=== PATIENT | male | born 1965 | race Caucasian/White ===

== ENCOUNTER 2019-01-01 14:47 | Observation (INO) | payer OTHER ==
[2019-01-01] MEDS ORDERED: CEFTRIAXONE 1GM/50ML BAG 1 GM/50 ML BAG IVPB ONE (15:21)
[2019-01-01] MEDS ORDERED: SODIUM CHLORIDE 0.9% 500 ML IV ONE (15:21)
[2019-01-01] MEDS ORDERED: CLINDAMYCIN 600MG/50ML PREMIX 600 MG/50 ML BAG IVPB ONE (15:23)
--- NOTE | 2019-01-01 15:26 | Emergency Department Record ---
History of Present Illness - General Chief complaint: Swelling of legs Stated complaint: SWELLING IN RT LEG Time Seen by Provider: 01/01/19 15:09 Source: Patient Mode of Arrival: Ambulatory Limitations: No limitations - History of Present Illness Initial comments: The patient is here due to having R leg pain and swelling for 4-5 days. He did bump his knee a couple of weeks ago and then it started getting red 4-5 days ago. Now in the last 24 hours the anterior R lower leg has become very red and swollen. He denies any fever, chills, vomiting, or severe pain. MD Complaint: Extremity pain, Extremity swelling Onset/Timin -: Days(s) Location: Right, Lower Leg History of Same: No Radiation: None Severity scale (1-10): 2 Quality: Aching - Related Data Home Medications Medication Instructions Recorded Confirmed Last Taken Dapagliflozin Propanediol [Farxiga] 10 mg PO DAILY 01/01/19 01/01/19 Unknown Ibuprofen [Advil] 600 mg PO TID 01/01/19 01/01/19 01/01/19 Insulin Glargine,Hum.rec.anlog 12 unit SQ DAILY 01/01/19 01/01/19 01/01/19 [Basaglar Kwikpen U-100] Losartan Potassium 50 mg PO DAILY 01/01/19 01/01/19 01/01/19 Metformin HCl 1,000 mg PO BID 01/01/19 01/01/19 01/01/19 Allergies Allergy/AdvReac Type Severity Reaction Status Date / Time erythromycin base Allergy DIARRHEA Verified 01/01/19 15:14 Penicillins Allergy RASH Verified 01/01/19 15:14 Travel Screening - Travel/Exposure Within Last 30 Days Have you traveled within the last 30 days?: No - Travel/Exposure Within Last Year Have you traveled outside the [place] in the last year?: No - Additonal Travel Details Have you been exposed to anyone with a communicable illness?: No - Travel Symptoms Symptom Screening: None Review of Systems Constitutional: Denies: Chills, Fever, Malaise Eyes: Denies: Eye discharge ENT: Denies: Congestion Respiratory: Denies: Cough Cardiovascular: Denies: Arrhythmia Endocrine: Denies: Fatigue Gastrointestinal: Denies: Nausea Genitourinary: Denies: Dysuria Musculoskeletal: Denies: Arthralgia Skin: Denies: Bruising Past Medical History - SOCIAL HISTORY Smoking Status: Former smoker Alcohol Use: Rare Drug Use: None - RESPIRATORY Hx Respiratory Disorders: Yes Hx Asthma: Yes - CARDIOVASCULAR Hx Cardio Disorders: Yes Hx Hypertension: Yes - NEURO Hx Neuro Disorders: No - GI Hx GI Disorders: Yes Hx Hiatal Hernia: Yes - Hx Genitourinary Disorders: No - ENDOCRINE Hx Endocrine Disorders: Yes Hx Diabetes: Yes Hx Thyroid Disease: No - MUSCULOSKELETAL Hx Musculoskeletal Disorders: Yes Hx Back Injury: Yes - PSYCH Hx Psych Problems: No - HEMATOLOGY/ONCOLOGY Hx Hematology/Oncology Disorders: No Family Medical History Any Significant Family History?: No Physical Exam - General General Appearance: Alert, Oriented x3, Cooperative, No acute distress - Head Head exam: Atraumatic, Normocephalic, Normal inspection - Eye Eye exam: Normal appearance, PERRL - ENT Throat exam: Normal inspection. negative: Tonsillar erythema, Tonsillar exudate - Neck Neck exam: Normal inspection, Full ROM. negative: Tenderness - Respiratory Respiratory exam: Normal lung sounds bilaterally. negative: Respiratory distress - Cardiovascular Cardiovascular Exam: Regular rate, Normal rhythm, Normal heart sounds - GI/Abdominal GI/Abdominal exam: Soft, Normal bowel sounds. negative: Tenderness - Extremities Extremities exam: Full ROM, Tenderness. negative: Normal inspection (There is erythema and warmth to the anterior lower leg from the knee to the ankle. The area is warm and tender with no crepitance. ), Joint swelling - Back Back exam: Reports: Normal inspection - Neurological Neurological exam: Alert, Normal gait. negative: Abnormal gait, Motor sensory deficit - Psychiatric Psychiatric exam: negative: Anxious Course Vital Signs 01/01/19 15:02 Temperature 97.9 F Pulse Rate 97 H Respiratory 16 Rate Blood Pressure 138/90 Pulse Ox 97 - Reevaluation(s) Reevaluation #1: The patient is doing OK at this time. His R leg is no worse and is not painful at this time. I did discuss need to admit the patient to the hospital overnight at least and he did agree. I then did discuss the case with Ирина ([employer]) and she does accept the admission. 01/01/19 16:24 Medical Decision Making - Data Complexity MDM Data: Labs Ordered and/or Reviewed - Lab Data Result diagrams: 01/01/19 15:26 01/01/19 15:26 Disposition Disposition: Admit Clinical Impression: Cellulitis Qualifiers: Site of cellulitis: unspecified site Qualified Code(s): L03.90 - Cellulitis, unspecified Disposition: Still a Patient at [facility] Decision to Admit: Admit from ER Decision to Admit Date: 01/01/19 Decision to Admit Time: 16:25 Accepting Physician: Reinaldo Time Discussed w/Accepting Physician: 16:25 Condition: (2) Stable Instructions: Cellulitis (ED) Forms: Patient Portal Access Time of Disposition: 16:26 Quality - Quality Measures Quality Measures: N/A - Blood Pressure Screening View Details: Yes Does Patient Have Any of the Following: No Blood Pressure Classification: Hypertensive Reading Systolic Measurement: 138 Diastolic Measurement: 90 Screening for High Blood Pressure: < First Hypertensive BP, F/U Documented > [ G8950] First Hypertensive Follow-up Interventions: Referral to alternative/primary care provider.
[2019-01-01 15:38] LABS: BASO % 0.3 % (0-6); EOS % 2.2 % (0-6); GRAN % 73.1 % (47-80); LYMPH % 15.2 % (16-45); MEAN CELL VOLUME 92.6 fl (81-97); MEAN CORPUSCULAR HEMOGLOBIN 32.4 pg (27-33); MEAN PLATELET VOLUME 9.4 fl (7.4-10.4); MONO % 9.2 % (0-9); PLATELET COUNT 222 K/uL (130-400); RED BLOOD COUNT 4.32 M/uL (4.40-5.70); RED CELL DISTRIBUTION WIDTH 13.3 % (11.5-14.5); WHITE BLOOD COUNT W/O DIFF 10.3 K/uL (4.2-12.2)
[2019-01-01 15:51] LABS: BLOOD UREA NITROGEN 23 mg/dL (6-20); CREATININE 0.9 mg/dL (0.7-1.2); EST GLOMERULAR FILTRATION RATE > 60 mL/min
[2019-01-01 15:52] LABS: TOTAL PROTEIN 7.1 g/dL (6.6-8.7)
[2019-01-01 15:54] LABS: GLUCOSE,RANDOM 267 mg/dL (74-109)
[2019-01-01 15:56] LABS: ALT/SGPT 18 U/L (<41); AST/SGOT 13 U/L (10.0-50.0); BILIRUBIN,DIRECT 0.3 mg/dL (0-0.3)
[2019-01-01 15:57] LABS: ALKALINE PHOSPHATASE 49 U/L (55-149); C-REACTIVE PROTEIN 18.92 mg/dL (<0.5)
[2019-01-01] MEDS ORDERED: Diph,Pert(Acell),Tet Vac 0.5 ML SYR IM ONE (16:23)
[2019-01-01] MEDS ORDERED: LEVEMIR FLEXTOUCH 100 UNIT/ML INSULIN PEN SQ SCH (19:30)
[2019-01-01] MEDS: IBUPROFEN 600 MG TABLET PO SCH ×2 (20:28→23:44)
[2019-01-01] MEDS: CLINDAMYCIN 600MG/50ML PREMIX 600 MG/50 ML BAG IVPB SCH (20:32)
[2019-01-01] MEDS: METFORMIN 500 MG TABLET PO SCH (22:49)
[2019-01-01] MEDS: GLIMEPIRIDE 2 MG TABLET PO SCH (22:49)
[2019-01-02] MEDS: CLINDAMYCIN 600MG/50ML PREMIX 600 MG/50 ML BAG IVPB SCH ×3 (03:17→18:10)
[2019-01-02] MEDS: ACETAMINOPHEN 325 MG TAB PO PRN ×2 (06:02→13:43)
[2019-01-02 06:41] LABS: BASO % 0.5 % (0-6); EOS % 1.8 % (0-6); GRAN % 72.3 % (47-80); HEMATOCRIT 42.7 % (42.0-52.0); HEMOGLOBIN 14.5 gm/dl (14.0-18.0); LYMPH % 16.7 % (16-45); MEAN CELL VOLUME 93.6 fl (81-97); MEAN CORPUSCULAR HEMOGLOBIN 31.8 pg (27-33); MEAN PLATELET VOLUME 9.5 fl (7.4-10.4); MONO % 8.7 % (0-9); PLATELET COUNT 238 K/uL (130-400); RED BLOOD COUNT 4.56 M/uL (4.40-5.70); RED CELL DISTRIBUTION WIDTH 13.2 % (11.5-14.5); WHITE BLOOD COUNT W/O DIFF 10.5 K/uL (4.2-12.2)
[2019-01-02 06:59] LABS: ALB/GLOB RATIO 1.2 (1.1-1.8); ALBUMIN 3.9 g/dL (4.0-5.0); ALKALINE PHOSPHATASE 51 U/L (55-149); ALT/SGPT 20 U/L (<41); AST/SGOT 13 U/L (10.0-50.0); BLOOD UREA NITROGEN 18 mg/dL (6-20); C-REACTIVE PROTEIN 14.76 mg/dL (<0.5); CREATININE 0.8 mg/dL (0.7-1.2); EST GLOMERULAR FILTRATION RATE > 60 mL/min; GLUCOSE,RANDOM 165 mg/dL (74-109); TOTAL PROTEIN 7.2 g/dL (6.6-8.7)
[2019-01-02] MEDS: METFORMIN 500 MG TABLET PO SCH (09:27)
[2019-01-02] MEDS: GLIMEPIRIDE 2 MG TABLET PO SCH (09:27)
[2019-01-02] MEDS: IBUPROFEN 600 MG TABLET PO SCH ×2 (09:27→16:40)
[2019-01-02] MEDS ORDERED: LOSARTAN POTASSIUM 25 MG TABLET PO SCH (10:00)
[2019-01-02] MEDS ORDERED: DAPAGLIFLOZIN PROPANEDIOL 10 MG PO SCH (10:00)
[2019-01-02] MEDS ORDERED: LEVEMIR FLEXTOUCH 100 UNIT/ML INSULIN PEN SQ SCH (10:00)
--- NOTE | 2019-01-02 11:15 | History & Physical ---
History of Present Illness - Date of Service Date of Service for History & Physical: 01/02/19 - History of Present Illness Admitting Diagnosis: 1. Right Lower Leg Cellulitis. History of Present Illness: 53 year old male patient presented to ED with right leg and knee pain and swelling for the past 4-5 days. Patient noticed a small abrasion on the anterior of his right knee, and noted the swelling and redness to radiate from there. Patient reported significant worsening of symptoms over the past 24 hours. Patient denied fever, chills, vomiting, shortness of breath, or severe pain. Patient's past medical history includes diabetes, HTN, vit D deficiency, and previous back surgeries. PCP: Dr. Carpenter ED Course: VS: Temp 97.9F, HR 97, RR 16, BP 138/90, Pulse ox 97% Tetanus updated afebrile WBC 10.3, CRP 18.9 Clindamycin 600mg q8h 01/02/19: Patient A&O x 4, sitting on edge of bed. Patient reports mild discomfort in knee at this time. Reviewed picture of patient's right knee/leg from yesterday, improvement in erythema and swelling of knee. Patient has received 2 doses of IV Clindamycin at this time. WBC remained stable at 10.5, CRP decreased to 14.76 this morning. Due to patient's history of diabetes, will keep patient for 2 additional doses of IV abx and dc home with PO Clindamycin at that time. Travel Screening - Travel/Exposure Within Last 30 Days Have you traveled within the last 30 days?: No - Travel/Exposure Within Last Year Have you traveled outside the [place] in the last year?: No - Additonal Travel Details Have you been exposed to anyone with a communicable illness?: No - Travel Symptoms Symptom Screening: None Review of Systems Reviewed: No additional complaints except as noted below Constitutional: Denies: Chills, Fever, Malaise Eyes: Denies: Eye discharge ENT: Denies: Congestion Respiratory: Denies: Cough Cardiovascular: Denies: Arrhythmia Endocrine: Denies: Fatigue Gastrointestinal: Denies: Nausea Genitourinary: Denies: Dysuria Musculoskeletal: Denies: Arthralgia Skin: Reports: Change in color (redness and swelling of right knee/leg). Denies : Bruising Past Medical History - SOCIAL HISTORY Smoking Status: Former smoker Alcohol Use: None Drug Use: None - RESPIRATORY Hx Respiratory Disorders: Yes Hx Asthma: Yes - CARDIOVASCULAR Hx Cardio Disorders: Yes Hx Hypertension: Yes - NEURO Hx Neuro Disorders: No - GI Hx GI Disorders: Yes Hx Hiatal Hernia: Yes - Hx Genitourinary Disorders: No - ENDOCRINE Hx Endocrine Disorders: Yes Hx Diabetes: Yes Hx Thyroid Disease: No - MUSCULOSKELETAL Hx Musculoskeletal Disorders: Yes Hx Back Injury: Yes - PSYCH Hx Psych Problems: No - HEMATOLOGY/ONCOLOGY Hx Hematology/Oncology Disorders: No Family Medical History Any Significant Family History?: No Hx Diabetes: Father, Mother, Grandparents Hx Heart Disease: Mother Hx HTN: Father, Mother, Children, Grandparents Hx Resp Disorders: Children H&P Meds/Allergies - Allergies Allergies: Allergies Allergy/AdvReac Type Severity Reaction Status Date / Time erythromycin base Allergy DIARRHEA Verified 01/01/19 15:14 Penicillins Allergy RASH Verified 01/01/19 15:14 - Home Medications Home Medications Medication Instructions Recorded Confirmed Last Taken Dapagliflozin Propanediol [Farxiga] 10 mg PO DAILY 01/01/19 01/01/19 Unknown Ibuprofen [Advil] 600 mg PO TID 01/01/19 01/01/19 01/01/19 Insulin Glargine,Hum.rec.anlog 12 unit SQ DAILY 01/01/19 01/01/19 01/01/19 [Basaglzoila Garcia U-100] Losartan Potassium 50 mg PO DAILY 01/01/19 01/01/19 01/01/19 Metformin HCl 1,000 mg PO BID 01/01/19 01/01/19 01/01/19 - Active Medications Active Medications: Current Medications Acetaminophen (Tylenol 325mg) 650 mg PO Q6H PRN PRN Reason: PAIN - MILD(1-4)/FEVER Last Admin: 01/02/19 06:02 Dose: 650 mg Glimepiride (Amaryl) 4 mg PO DAILY [facility] Last Admin: 01/02/19 09:27 Dose: 4 mg Clindamycin Phosphate (Cleocin 600 [id number]) 600 mg in 50 mls @ 100 mls/ hr IVPB Q8H [facility] Last Admin: 01/02/19 11:03 Dose: 100 mls/hr Ibuprofen (Motrin 600mg) 600 mg PO TID [facility] Last Admin: 01/02/19 09:27 Dose: 600 mg Insulin Detemir (Levemir Flextouch) 12 unit SQ DAILY [facility] Last Admin: 01/02/19 09:26 Dose: 12 unit Losartan Potassium (Cozaar) 50 mg PO DAILY [facility] Last Admin: 01/02/19 09:27 Dose: 50 mg Metformin HCl (Glucophage Ir) 1,000 mg PO BID [facility] Last Admin: 01/02/19 09:27 Dose: 1,000 mg Non-Formulary Medication (Dapagliflozin Propanediol [Farxiga]) 10 mg PO DAILY [facility] Physical Exam - Vital Signs Vital Signs: Vital Signs - Last 24 Hrs Temp Pulse Pulse Resp BP BP Pulse Ox 01/02/19 08:15 20 01/02/19 04:00 97.9 F 97 H 16 155/88 96 01/01/19 21:00 86 16 01/01/19 20:00 98.2 F 86 16 136/78 96 01/01/19 17:23 92 H 16 150/99 98 01/01/19 16:48 91 H 16 150/99 98 01/01/19 15:02 97.9 F 97 H 16 138/90 97 - General General Appearance: Alert, Oriented x3, Cooperative, No acute distress Limitations: No limitations - Head Head exam: Atraumatic, Normocephalic, Normal inspection - Eye Eye exam: Normal appearance, PERRL - ENT ENT exam: Normal exam, Mucous membranes moist Throat exam: Normal inspection. negative: Tonsillar erythema, Tonsillar exudate - Neck Neck exam: Normal inspection, Full ROM. negative: Tenderness - Respiratory Respiratory exam: Normal lung sounds bilaterally. negative: Respiratory distress - Cardiovascular Cardiovascular Exam: Regular rate, Normal rhythm, Normal heart sounds Peripheral Pulses: 2+: Radial (R), Radial (L), Dorsalis Pedis (R), Dorsalis Pedis (L) - GI/Abdominal GI/Abdominal exam: Soft, Normal bowel sounds. negative: Tenderness - Extremities Extremities exam: Full ROM, Tenderness (right knee). negative: Normal inspection (Improved erythema and warmth to the anterior lower leg from the knee to the ankle. The area is warm and tender to palpation ), Joint swelling - Back Back exam: Reports: Normal inspection - Neurological Neurological exam: Alert, Normal gait. negative: Abnormal gait, Motor sensory deficit - Psychiatric Psychiatric exam: negative: Anxious - Skin Skin exam: Abrasion (noted to right anterior knee) Results - Labs Result Diagrams: 01/02/19 06:20 01/02/19 06:20 Labs Last 24 Hours: Laboratory Results - last 24 hr 01/01/19 01/01/19 01/02/19 15:26 15:26 06:20 WBC 10.3 10.5 RBC 4.32 L 4.56 Hgb 14.0 14.5 Hct 40.0 L 42.7 MCV 92.6 93.6 MCH 32.4 31.8 MCHC 35.0 34.0 RDW 13.3 13.2 Plt Count 222 238 MPV 9.4 9.5 Gran % 73.1 72.3 Lymphocytes % 15.2 L 16.7 Monocytes % 9.2 H 8.7 Eosinophils % 2.2 1.8 Basophils % 0.3 0.5 Sodium 140 Potassium 4.0 Chloride 102 Carbon Dioxide 23.0 Anion Gap 15.0 BUN 23 H Creatinine 0.9 Estimated GFR > 60 Random Glucose 267 H Calcium 9.2 Total Bilirubin 0.80 Direct Bilirubin 0.3 AST 13 ALT 18 Alkaline Phosphatase 49 L C-Reactive Protein 18.92 H Total Protein 7.1 Albumin 4.0 Globulin Albumin/Globulin Ratio 01/02/19 06:20 WBC RBC Hgb Hct MCV MCH MCHC RDW Plt Count MPV Gran % Lymphocytes % Monocytes % Eosinophils % Basophils % Sodium 142 Potassium 4.1 Chloride 105 Carbon Dioxide 23.0 Anion Gap 14.0 BUN 18 Creatinine 0.8 Estimated GFR > 60 Random Glucose 165 H Calcium 9.2 Total Bilirubin 0.70 Direct Bilirubin AST 13 ALT 20 Alkaline Phosphatase 51 L C-Reactive Protein 14.76 H Total Protein 7.2 Albumin 3.9 L Globulin 3.3 Albumin/Globulin Ratio 1.2 VTE H&P Assessment - Risk for VTE Risk for VTE: Yes Risk Level: Moderate Risk Assessment Date: 01/02/19 Risk Assessment Time: 11:16 VTE Orders Placed or Will Be Placed: Yes Plan - Detailed Diagnosis and Plan (1) Cellulitis Current Visit: Yes Status: Acute Qualifiers: Site of cellulitis: unspecified site Qualified Code(s): L03.90 - Cellulitis , unspecified Base Code: L03.90 - CELLULITIS, UNSPECIFIED Comment: 01/02/19: - Cellulitis noted on right knee and leg. Erythema, swelling, and warmth has improved since yesterday. Small abrasion noted on anterior knee, no drainage noted. - WBC 10.5, CRP improved from 18.9 to 14.7 today - Afebrile - Will continue with Clindamycin 600mg q8h IVPB for a total of 4 doses due to history of diabetes (2) Diabetes type 2, controlled Current Visit: Yes Status: Acute Base Code: E11.9 - TYPE 2 DIABETES MELLITUS WITHOUT COMPLICATIONS Comment: 01/02/19: - Currently controlled on Metformin 1000mg BID, Amaryl 4mg daily, Farxiga 10mg daily, and Levemir 12U daily - Accucheck prn (3) DVT prophylaxis Current Visit: Yes Status: Acute Base Code: [id number] - Comment: 01/02/19: Moderate risk due to age, hospitalization, and decreased mobility -Lovenox 40mg SQ daily (4) Full code status Current Visit: Yes Status: Acute Base Code: Z78.9 - OTHER SPECIFIED HEALTH STATUS Comment: 01/02/19: Patient is a full code this admission
--- NOTE | 2019-01-02 11:27 | Discharge Summary ---
Providers Discharge Summary Date: 01/02/19 Date of admission: 01/01/19 17:10 Expected Date of Discharge: 01/02/19 Attending physician: ADITI CRUZ Primary care physician: DEBORAH SALGUERO D.O. Physical Exam - Vital Signs Vital Signs: Vital Signs - Last 24 Hrs Temp Pulse Pulse Resp BP BP Pulse Ox 01/02/19 08:15 20 01/02/19 04:00 97.9 F 97 H 16 155/88 96 01/01/19 21:00 86 16 01/01/19 20:00 98.2 F 86 16 136/78 96 01/01/19 17:23 92 H 16 150/99 98 01/01/19 16:48 91 H 16 150/99 98 01/01/19 15:02 97.9 F 97 H 16 138/90 97 - General General Appearance: Alert, Oriented x3, Cooperative, No acute distress Limitations: No limitations - Head Head exam: Atraumatic, Normocephalic, Normal inspection - Eye Eye exam: Normal appearance, PERRL - ENT ENT exam: Normal exam, Mucous membranes moist Throat exam: Normal inspection. negative: Tonsillar erythema, Tonsillar exudate - Neck Neck exam: Normal inspection, Full ROM. negative: Tenderness - Respiratory Respiratory exam: Normal lung sounds bilaterally. negative: Respiratory distress - Cardiovascular Cardiovascular Exam: Regular rate, Normal rhythm, Normal heart sounds Peripheral Pulses: 2+: Radial (R), Radial (L), Dorsalis Pedis (R), Dorsalis Pedis (L) - GI/Abdominal GI/Abdominal exam: Soft, Normal bowel sounds. negative: Tenderness - Extremities Extremities exam: Full ROM, Tenderness (right knee). negative: Normal inspection (Improved erythema and warmth to the anterior lower leg from the knee to the ankle. The area is warm and tender to palpation ), Joint swelling - Back Back exam: Reports: Normal inspection - Neurological Neurological exam: Alert, Normal gait. negative: Abnormal gait, Motor sensory deficit - Psychiatric Psychiatric exam: negative: Anxious - Skin Skin exam: Abrasion (noted to right anterior knee) Hospitalization - Hospitalization Admission Diagnosis: 1. Right Lower Leg Cellulitis. - Problem List/Discharge Diagnosis (1) Cellulitis Current Visit: Yes Status: Acute Discharge Diagnosis: Site of cellulitis: unspecified site Qualified Code(s): L03.90 - Cellulitis , unspecified Base Code: L03.90 - CELLULITIS, UNSPECIFIED Comment: 01/02/19: - Cellulitis noted on right knee and leg. Erythema, swelling, and warmth has improved since yesterday. Small abrasion noted on anterior knee, no drainage noted. - WBC 10.5, CRP improved from 18.9 to 14.7 today - Afebrile - Has received Clindamycin 600mg q8h IVPB for a total of 4 doses due to history of diabetes - Will continue with Clindamycin 300mg q6h for 6 additional days, for a total of 7 days of therapy (2) Diabetes type 2, controlled Current Visit: Yes Status: Acute Base Code: E11.9 - TYPE 2 DIABETES MELLITUS WITHOUT COMPLICATIONS Comment: 01/02/19: - Currently controlled on Metformin 1000mg BID, Amaryl 4mg daily, Farxiga 10mg daily, and Levemir 12U daily - Accucheck prn (3) DVT prophylaxis Current Visit: Yes Status: Acute Base Code: [id number] - Comment: 01/02/19: Moderate risk due to age, hospitalization, and decreased mobility -Lovenox 40mg SQ daily while hospitalized, no need for prophylaxis upon discharge (4) Full code status Current Visit: Yes Status: Acute Base Code: Z78.9 - OTHER SPECIFIED HEALTH STATUS Comment: 01/02/19: Patient is a full code this admission - Hospitalization Course Disposition: Home, Self-Care Hospital Course: 53 year old male patient presented to ED with right leg and knee pain and swelling for the past 4-5 days. Patient noticed a small abrasion on the anterior of his right knee, and noted the swelling and redness to radiate from there. Patient reported significant worsening of symptoms over the past 24 hours. Patient denied fever, chills, vomiting, shortness of breath, or severe pain. Patient's past medical history includes diabetes, HTN, vit D deficiency, and previous back surgeries. PCP: Dr. Salguero ED Course: VS: Temp 97.9F, HR 97, RR 16, BP 138/90, Pulse ox 97% Tetanus updated afebrile WBC 10.3, CRP 18.9 Clindamycin 600mg q8h 01/02/19: Patient A&O x 4, sitting on edge of bed. Patient reports mild discomfort in knee at this time. Reviewed picture of patient's right knee/leg from yesterday, improvement in erythema and swelling of knee. Patient has received 2 doses of IV Clindamycin at this time. WBC remained stable at 10.5, CRP decreased to 14.76 this morning. Due to patient's history of diabetes, will keep patient for 2 additional doses of IV abx and dc home with PO Clindamycin at that time. UPDATE: continued improvement in erythema, patient has remained afebrile. Will continue with Clindamycin 300mg q6h for 6 additional days. Patient to follow- up with PCP in 1-2 weeks. Abnormal Labs: Abnormal Lab Results 01/01/19 01/01/19 01/02/19 Range/Units 15:26 15:26 06:20 RBC 4.32 L (4.40-5.70) M/uL Hct 40.0 L (42.0-52.0) % Lymphocytes % 15.2 L (16-45) % Monocytes % 9.2 H (0-9) % BUN 23 H (6-20) mg/dL Random Glucose 267 H 165 H (74-109) mg/dL Alkaline Phosphatase 49 L 51 L (55-149) U/L C-Reactive Protein 18.92 H 14.76 H (<0.5) mg/dL Albumin 3.9 L (4.0-5.0) g/dL Condition at Discharge: (2) Stable Discharge Medications - Discharge Medications Prescriptions: Clindamycin HCl 300 mg PO Q6H #24 capsule Home Medications: Ambulatory Orders Dapagliflozin Propanediol [Farxiga] 10 mg PO DAILY 01/01/19 [Last Taken Unknown] Ibuprofen [Advil] 600 mg PO TID 01/01/19 [Last Taken 01/01/19] Insulin Glargine,Hum.rec.anlog [Basaglar Kwikpen U-100] 12 unit SQ DAILY [Last Taken 01/01/19] Losartan Potassium 50 mg PO DAILY 01/01/19 [Last Taken 01/01/19] Metformin HCl 1,000 mg PO BID 01/01/19 [Last Taken 01/01/19] Clindamycin HCl 300 mg PO Q6H #24 capsule 01/02/19 [Last Taken Unknown] Glimepiride [Amaryl] 4 mg PO DAILY tablet 01/02/19 [Last Taken Unknown] Discharge Plan - Discharge Instructions Activity at Discharge: Increase Activity as Tolerated Diet at Discharge: Advance to Usual Diet Instructions: Cellulitis (ED) Additional Instructions: -Starting tomorrow (01/03/19), take the Clindamycin 4 times a day for 6 days -Follow-up with your PCP in 1-2 weeks Return to the ED if getting worse. Diet and activity as tolerated. Resume home meds. Quality Measures - Quality Measures Quality Measures: Documentation of Current Medications in Medical Record, Screening for High Blood Pressure and F/U Documented - Current Medications Quality Measure: Measure #130: Documentation of Current Medications Documentation of Current Medications: <Current Medications Documented/Reviewed> [G8427] - Blood Pressure Screening Quality Measure: Screening for High Blood Pressure and Follow-Up Documented Does Patient Have Any of the Following: Active Dx of HTN Blood Pressure Classification: Hypertensive Reading Systolic Measurement: 150 Diastolic Measurement: 99 Screening for High Blood Pressure: Patient Exclusion, Hx of HTN [G9744] - Elder Abuse Suspicion Index EASI Reference Information: Jose SHARIF, Liliana C, Tamika D, Marcello Blackman.Development and validation of a tool to assist physicians identification of elder abuse: The Elder Abuse Suspicion Index (EASI ). Journal of Elder Abuse and Neglect, 2008; 20 (3): 276-300.
[2019-01-03] MEDS ORDERED: ENOXAPARIN 40 MG/0.4 ML SYR SQ SCH (10:00)
== END 2019-01-02 19:35 | disposition home or self-care (01) ==
LOC: ER 14:47 → MEDSURG 17:10
PROVIDERS: ADMIT Internal Medicine; ATTEND Internal Medicine
DX: L03.115 Cellulitis of right lower limb (principal); I10 Essential (primary) hypertension; E11.9 Type 2 diabetes mellitus without complications; Z79.4 Long term (current) use of insulin; K44.9 Diaphragmatic hernia without obstruction or gangrene; J45.909 Unspecified asthma, uncomplicated; Z87.891 Personal history of nicotine dependence
CPT/HCPCS: 85025 ×2; 80076; 86140 ×2; 80048; 80053; 36416; 82948; G0378 ×2; J1815; 90715; 96365; 96372; 99220; 99285